=== PATIENT | male | born 2000 | race Caucasian/White ===

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

== ENCOUNTER → 2023-12-08 | Outpatient (CLI) | payer OTHER | END | disposition home or self-care (01) | LOC: RAD 07:39 | PROVIDERS: ATTEND Registered Nurse | DX: S39.012D Strain of muscle, fascia and tendon of lower back, subsequent encounter (principal); M41.86 Other forms of scoliosis, lumbar region; X58.XXXD Exposure to other specified factors, subsequent encounter ==

== ENCOUNTER 2024-04-11 18:21 | Emergency (ER) | payer OTHER ==
[~2024-04-11] VITALS: Ht 182.8 cm; Wt 236.3 kg
[2024-04-11 19:26] VITALS: BP 186/72
[2024-04-11] MEDS ORDERED: METHYLPRED-DP4 MG PO (19:32)
[2024-04-11] MEDS ORDERED: NAPROXEN500 MG PO (19:32)
[2024-04-11] MEDS ORDERED: Doxycycline Hyclate 100 MG CAP PO ONE (19:35)
[2024-04-11] MEDS ORDERED: VIBRAMYCIN100 MG PO (19:36)
== END 2024-04-11 19:46 | disposition home or self-care (01) ==
LOC: ED 18:21
DX: S20.462A Insect bite (nonvenomous) of left back wall of thorax, initial encounter (principal); Z88.0 Allergy status to penicillin; Z88.8 Allergy status to other drugs, medicaments and biological substances; Z79.899 Other long term (current) drug therapy; W57.XXXA Bitten or stung by nonvenomous insect and other nonvenomous arthropods, initial encounter; Y93.89 Activity, other specified; Y92.89 Other specified places as the place of occurrence of the external cause; Y99.8 Other external cause status

== ENCOUNTER → 2025-03-15 | Outpatient (CLI) | payer OTHER ==
[~2025-03-15] MED LIST changes: +METHYLPRED-DP4 MG PO; +NAPROXEN500 MG PO; +VIBRAMYCIN100 MG PO
== END | disposition home or self-care (01) ==
LOC: RAD 16:50
PROVIDERS: ATTEND Chiropractor Orthopedic
DX: S33.5XXA Sprain of ligaments of lumbar spine, initial encounter (principal); M54.50 Low back pain, unspecified; G89.29 Other chronic pain; M47.816 Spondylosis without myelopathy or radiculopathy, lumbar region; X58.XXXA Exposure to other specified factors, initial encounter; Y93.89 Activity, other specified; Y92.89 Other specified places as the place of occurrence of the external cause; Y99.8 Other external cause status